=== PATIENT | male | born 1955 ===

== ENCOUNTER 2022-06-19 08:00 | Inpatient (IN) | payer OTHER ==
[~2022-06-19] VITALS: Ht 182.9 cm; Wt 72.6 kg
[2022-06-19] MEDS ORDERED: HORIZANT600 MG PO (11:47)
[2022-06-19] MEDS ORDERED: COZAAR100 MG PO (11:47)
[2022-06-22] MEDS ORDERED: DICLOFENAC POTA50 MG (09:47)
[2022-06-22] MEDS ORDERED: GABAPENTIN600 MG (09:47)
[2022-06-22] MEDS ORDERED: LATANOPROST2.5 ML (09:49)
[2022-06-23] MEDS ORDERED: ULTRACET PO (07:53)
== END 2022-06-23 14:33 | disposition home or self-care (01) | DRG 376 ==
LOC: SURG 06-22 06:13 → O/R 06-22 06:13 → EDBD 06-22 08:00 → SURG 06-22 08:00
PROVIDERS: ADMIT Surgery; ATTEND Surgery
PROC: 0DJD8ZZ Inspection of Lower Intestinal Tract, Via Natural or Artificial Opening Endoscopic (ICD-10-PCS; 2022-06-22)
PROC: 3E0T3BZ Introduction of Anesthetic Agent into Peripheral Nerves and Plexi, Percutaneous Approach (ICD-10-PCS; 2022-06-22)
PROC: 0DBP8ZZ Excision of Rectum, Via Natural or Artificial Opening Endoscopic (ICD-10-PCS; principal; 2022-06-22 11:00)
DX: C20 Malignant neoplasm of rectum (principal); F17.200 Nicotine dependence, unspecified, uncomplicated; I11.9 Hypertensive heart disease without heart failure; K63.5 Polyp of colon; Z20.822 Contact with and (suspected) exposure to COVID-19